=== PATIENT | male | born 1965 | race Caucasian/White ===

== ENCOUNTER 2020-04-02 16:26 | Outpatient (CLI) | payer OTHER, SELFPAY ==
--- NOTE | ~2020-04-02 | XR_ITS ---
EXAMINATION: XR shoulder LT min 2V DATE: 04/02/2020 16:50 INDICATION: Left shoulder pain radiating down the left arm TECHNIQUE: AP internally and externally rotated, AP oblique externally rotated and axillary views of the left shoulder were obtained. COMPARISON: None FINDINGS: Normal alignment. No fracture. Glenohumeral joint is normal. Acromioclavicular joint is normal. Soft tissues are unremarkable. Visualized portions of the left lung are clear. IMPRESSION: No osseous abnormality at the left shoulder. Reviewed, dictated and finalized at location A.
== END 2020-04-02 16:27 | disposition home or self-care (01) ==
PROVIDERS: PCP Family Medicine; Visit Provider Internal Medicine Endocrinology, Diabetes & Metabolism
DX: M25.519 Pain in unspecified shoulder (principal)
CPT/HCPCS: 73030

== ENCOUNTER 2020-05-25 15:04 | Emergency (ER) | payer OTHER, SELFPAY ==
[2020-05-25 15:09] VITALS: BP 161/93; PULSE 116; RESP 20; TEMP 36.9; O2SAT 95
--- NOTE | 2020-05-25 15:10 | ED.ALLEREA ---
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 He experienced swelling of his face and hands, tightness in hi chest getting, hives all over, and minor swelling of his throat, tongue and lips. He denies itching. He had his first (and only) episode of similar symptoms after being stung by yellow jackets a year ago also when he was weed whipping. He has a Epi auto-injector but did not use it because it was . He denies nausea, abd. pain, lightheadedness. Related Data Allergies Allergy/AdvReac Type Severity Reaction Status Date / Time Sulfa (Sulfonamide Allergy Intermediate Anaphylactic Verified 05/25/20 15:22 Antibiotics) Shock shellfish derived Allergy Mild Anaphylactic Verified 05/25/20 15:22 Shock bee venom protein (honey bee) Allergy Unknown unknown Verified 05/25/20 15:22 Penicillins Allergy Unknown MOTHER IS Verified 05/25/20 15:22 ALLERGIC sulfamethizole Allergy Unknown Asthma Verified 05/25/20 15:22 Review of Systems Constitutional: Constitutional: Reports no additional constitutional complaints ENT: Reports system reviewed and no additional complaints, except as documented and Denies sore throat Cardiovascular: Cardiovascular: Reports no additional cardiovascular complaints Respiratory: Respiratory: Reports no additional respiratory complaints Gastrointestinal: Gastrointestinal: Reports no additional gastrointestinal complaints Allergic/Immunologic: Allergic/Immunologic: Reports no additional allergic/immunologic complaints [facility] Surgical History Surgical History History of tonsillectomy History of vasectomy Hx of arthroscopy of right knee Family History Family History Mother Hypertension Father Acute myocardial infarction Other Diabetes mellitus Family history of hearing loss Family history of obesity Family history of thyroid disease Social History Social History Smoking status: Former smoker Smoking end date: 10/18/98 Alcohol intake: never Gender identity (if verbalized by the patient): Male Exam Const: General: alert; No diaphoretic Nutritional Appearance: obese Orientation/consciousness: patient oriented x3 Other: anxious HENMT: Face and sinus: normal facial exam (face is red, covered with developing hives. ) Mouth: Yes Normal oral and palatal mucosa present, Yes lip normal and Yes moist mucous membranes Eyes: Conjunctivae: conjunctivae normal Neck: Neck: no lymphadenopathy Chest: Chest palpation & inspection: normal inspection of the chest Resp: Effort & Inspection: normal respiratory effort Auscultation: clear to auscultation bilaterally Cardio: Rate: regular rate and tachycardic Rhythm: regular rhythm GI: GI Palp: Yes Soft to palpation and No Tenderness to palpation present (GI) Skin: Other: Hives located on face only. Neuro: General: patient oriented x3 Extrem: Other: palms are red, his hands and fingers are not obvioiusly swollen but he is obese. Course Course Emergency Course: Immediately given epinephrine 0.5 mg IM. Rash began clearing within minutes. Reevaluation(s) Reevaluation #1: Pt symptoms rapidly resolved. After 80 minutes he has no rash, itching, tightness in chest, swollen sensation in mouth or lips, nausea/abdominal pain. Pt. c/o nasal and sinus congestion with a very mild frontal headache. Blood pressure systolic 140 - 155 throughout course. Pt. instructed to f/u with PCP for referal to electrical project engineer. Date: 05/25/20 Time: 16:17 Vital Signs Vital signs: Vital Si
[2020-05-25] MEDS: EPINEPHrine HCL INJ 1 MG/ML AMPUL 0.5 MG IM (15:13)
[2020-05-25] MEDS: LORATADINE 10 MG TABLET PO (15:29)
[2020-05-25 16:00] VITALS: BP 136/88; PULSE 102; RESP 20; O2SAT 94
[2020-05-25 16:36] VITALS: BP 144/85; PULSE 104; RESP 20; O2SAT 98
== END 2020-05-25 16:37 | disposition home or self-care (01) ==
PROVIDERS: Emergency Provider Family Medicine; PCP Family Medicine
DX: T63.441A Toxic effect of venom of bees, accidental (unintentional), initial encounter (principal)
CPT/HCPCS: 96372; 99283; A9270; J0171

== ENCOUNTER 2021-03-05 17:13 | Inpatient (IN) | payer OTHER, SELFPAY ==
[2021-03-05] VITALS (8 sets, daily range): BP systolic 123–164; BP diastolic 76–97; PULSE 87–93; RESP 17–26; TEMP 36.8–37.9; O2SAT 96–99; BMI 40.9; BMI 40.8
--- NOTE | ~2021-03-05 | CT_ITS ---
EXAMINATION: CT abdomen pelvis wo con DATE: 03/05/2021 18:18 INDICATION: Abdominal pain TECHNIQUE: Computed tomography (CT) of the abdomen and pelvis was performed without intravenous contr ast. The dose-length product (DLP) was 1521.51 mGy-cm. Automated exposure control and iterative recon struction technique were employed. COMPARISON: 02/19/2019 FINDINGS: Minimal dependent atelectasis is present in the lung bases. The heart size is normal. The l iver, spleen,, gallbladder, and left adrenal gland are normal. A 10 mm low-attenuation mass of the ri ght adrenal gland is consistent with an adenoma a myelolipoma. The kidneys are unremarkable. No patho logically enlarged abdominal or pelvic lymph nodes are identified. There are no dilated loops of evaristo l. Colonic diverticulosis is noted. There is inflammatory fat stranding adjacent to the distal descen ding/proximal sigmoid colon. There are foci of adjacent extraluminal gas. Free intraperitoneal gas is also seen in right upper quadrant near the liver. There is a fat-containing umbilical hernia. Mild l umbar spondylosis is noted. IMPRESSION: 1. Perforated descending/sigmoid diverticulitis with free intraperitoneal gas adjacent to the inflamm ation as well as in the right upper quadrant. These findings were discussed with Dr. Bobby roberto DO in the Emergency Department at 1833 hours on 03/05/2021. Reviewed, dictated and finalized at location A. IMPRESSION: 1. Perforated descending/sigmoid diverticulitis with free intraperitoneal gas a djacent to the inflammation as well as in the right upper quadrant. These findi ngs were discussed with Dr. Bobby Page DO in the Emergency Department a t 1833 hours on 03/05/2021.
--- NOTE | 2021-03-05 17:25 | ED.ABDPAIN ---
HPI - Abdominal Pain General Chief Complaint: Abdominal Pain Stated Complaint: abdominal pain Time Seen by Provider: 03/05/21 17:14 Source: RN notes reviewed History of Present Illness HPI narrative: Patient presents to emergency department from home for abdominal pain. Patient states symptoms began last night. Pain is located in the bilateral lower abdomen described as sharp and stabbing does not radiate. He states subjective fever but denies any measured temperature. Denies any nausea vomiting diarrhea or any other symptoms. States he has a history of diverticulitis and this feels similar to prior Related Data Allergies Allergy/AdvReac Type Severity Reaction Status Date / Time Sulfa (Sulfonamide Allergy Intermediate Anaphylactic Verified 05/25/20 15:22 Antibiotics) Shock shellfish derived Allergy Mild Anaphylactic Verified 05/25/20 15:22 Shock bee venom protein (honey bee) Allergy Unknown unknown Verified 05/25/20 15:22 Penicillins Allergy Unknown MOTHER IS Verified 05/25/20 15:22 ALLERGIC sulfamethizole Allergy Unknown Asthma Verified 05/25/20 15:22 wasp Allergy Severe Anaphalaxis Uncoded 05/28/20 14:48 Review of Systems Review of Systems: Narrative: Gen.: Denies fevers or chills ENT: Denies congestion Respiratory: Denies shortness of breath or cough CV: Denies chest pain or palpitations GI: See HPI denies burning, urgency, frequency or hematuria Musculoskeletal: Denies back pain or muscle pain Neuro: Denies numbness, tingling, weakness or focal weakness Skin: Denies rash Except as documented, all other systems reviewed and negative PMF Past Medical History Medical History (Updated 03/05/21 @ 19:10 by Bobby Page DO) Hypertension Hypothyroidism Surgical History Surgical History History of tonsillectomy History of vasectomy Hx of arthroscopy of right knee Family History Family History Mother Hypertension Father Acute myocardial infarction Other Diabetes mellitus Family history of hearing loss Family history of obesity Family history of thyroid disease Social History Social History Smoking status: Former smoker Smoking end date: 10/18/98 Alcohol intake: never Gender identity (if verbalized by the patient): Male Exam Narrative: Exam Narrative: APPEARANCE: No acute distress, nontoxic, resting in bed HEENT: Normocephalic, atraumatic, OMM RESPIRATORY: No respiratory distress, clear to auscultation bilaterally with no rhonchi wheezing or rales CARDIOVASCULAR: RRR s murmur ABDOMINAL: Soft nondistended, tender palpation right lower quadrant and left lower quadrant no tenderness to palpation in right upper quadrant and left upper quadrant no rebound or guarding MUSCULOSKELETAl: Moves all extremities. No clubbing, cyanosis or edema. NEURO: Awake and alert. Following commands, speech normal, no focal deficits SKIN:: Warm, dry. Normal Color PSYCHIATRIC: Normal affect/mood Course Course Emergency Course: Called and discussed with Dr. Mills presentation work-up agrees with René this time with admission requests consult to hospitalist service for medical management Discussed with INOCENTE Beatty for Dr. Grijalva presentation work-up agrees with consult Discussed with patient and family results of workup and diagnosis. Discussed need for admission. Patient and family understand and agree to current treatment plan Vital Signs Vital signs: Vital Signs Pulse Rate 92 03/05/21 18:00 Respiratory Rate 26 H 03/05/21 18:00 Pulse Oximetry 98 03/05/21 18:00 Temperature 100.2 F H 03/05/21 18:01 Pulse Rate 92 03/05/21 18:01 Respiratory Rate 23 H 03/05/21 18:01 Blood Pressure 164/97 H 03/05/21 18:01 Pulse Oximetry 96 03/05/21 18:01 MDM - Abdominal Pain Lab Data Result d
[2021-03-05 18:21] LABS: Basophils Percent Auto 0.4 % (0.2-1.2); Eosinophils Absolute Auto 0.1 K/mm3 (0-0.3); Eosinophils Percent Auto 0.9 % (0-4.4); Hematocrit 41.7 % (42.0-52.0); Hemoglobin 13.8 g/dL (14.0-18.0); Immature Granulocyte Absolute 0.03 K/mm3 (0.00-0.031); Immature Granulocyte Percent A 0.3 % (0-0.5); Lymphocytes Percent Auto 21.4 % (18.3-44.2); Mean Corpuscular HGB Conc 33.1 g/dl (32-36); Mean Corpuscular Hemoglobin 26.6 pg (26-34); Mean Corpuscular Volume 80.5 fl (80-100); Monocytes Absolute Auto 0.6 K/mm3 (0.1-0.6); Monocytes Percent Auto 6.1 % (2.6-8.5); Neutrophils Absolute Auto 7.3 K/mm3 (1.3-6.7); Neutrophils Percent Auto 70.9 % (45.5-73.1); Platelet Count Result 210 k/mm3 (150-375); Red Blood Count 5.18 M/mm3 (4.6-6.20); Red Cell Distribution Width 14.4 % (11.5-14.5); White Blood Count 10.3 K/mm3 (4.5-10.0)
[2021-03-05] MEDS: KETOROLAC 30 MG/ML VIAL (*BKC) IV PUSH (18:21)
[2021-03-05] MEDS: SODIUM CHLORIDE 0.9% IV 1,000 ML 999 ML IV CONT (18:22)
[2021-03-05 18:39] LABS: Alanine Aminotransferase 15 U/L (4-50); Albumin Level 4.5 g/dL (3.5-5.1); Alkaline Phosphatase 77 U/L (38-126); Anion Gap 7 mmol/L (8-16); Aspartate Amino Transferase 22 U/L (17-59); Bilirubin,Total 0.7 mg/dL (0.2-1.3); Blood Urea Nitrogen 13 mg/dL (9-20); Calcium 9.4 mg/dL (8.4-10.2); Carbon Dioxide 29 mmol/L (22-30); Chloride 103 mmol/L (98-107); Estimated Glomerular Filt Rate > 60; Glucose 90 mg/dL (75-110); Lipase 76 U/L (23-300); Potassium 3.9 mmol/L (3.4-5.0); Sodium 139 mmol/L (137-145)
[2021-03-05 19:00] LABS: Add Urine Microscopic? NO; Appearance Urine Clear (Clear); Bilirubin Urine Negative (Negative); Blood Urine Negative (Negative); Color Urine Straw (Yellow); Glucose Urine UA Negative (Negative); Ketones Urine Negative (Negative); Leukocyte Esterase Ur Negative LEU/UL (Negative); Nitrate Urine Negative (Negative); Protein Urine Negative (Negative); Specific Grav Ur 1.006 (1.001-1.035); Urobilinogen Urine Negative mg/dL (<2.0)
[2021-03-05] MEDS: metroNIDAZOLE 500 MG/ISO 100ML 500 MG/100 ML BAG 100 MG IVPB ×2 (19:25→23:42)
[2021-03-05] MEDS: SODIUM CHLORIDE 0.9% IV 1,000 ML 125 ML IV CONT (22:17)
--- NOTE | 2021-03-05 23:00 | WPDCN ---
Assessment and Plan Assessment and plan (1) Diverticulitis of colon with perforation: Code(s): K57.20 - Diverticulitis of large intestine with perforation and abscess without bleeding Status: Acute (2) Hypertension: Code(s): I10 - Essential (primary) hypertension Status: Acute (3) Hypothyroidism: Code(s): E03.9 - Hypothyroidism, unspecified Status: Acute (4) Anemia: Code(s): D64.9 - Anemia, unspecified Status: Acute (5) Obstructive sleep apnea on CPAP: Code(s): G47.33 - Obstructive sleep apnea (adult) (pediatric); Z99.89 - Dependence on other enabling machines and devices Status: Acute Additional Plan The patient presents today with abdominal pain, found to have perforated diverticulitis. He has been admitted to the surgical service and has been started on levofloxacin and metronidazole. At this time he is on bowel rest and will receive IV fluid rehydration. Analgesics and antiemetics available as needed. I do not see any antihypertensives listed on his home medication but he does apparently care the diagnosis of hypertension. Blood pressures were initially elevated on arrival but have improved with pain control. They will continue to be monitored closely. He has a mild anemia which is stable on review of previous labs. He may use his CPAP from home while hospitalized. Continue levothyroxine but changed IV form as he is NPO. Check TSH and repeat labs in a.m. Thank you for allowing us to participate in this patient's care. Please do not hesitate to contact us with any questions. Supervising physician for this medical consultation is Dr. Joana Grijalva. HPI Data of Consult Date/Time: 03/05/21 23:00 Requesting Physician: Joana Grijalva MD Primary Care Provider: Denver Hogan MD Consult Narrative Narrative: This is a 55-year-old male with history of recurrent diverticulitis, obstructive sleep apnea on CPAP, and hypothyroidism who presented to the emergency department earlier today via private vehicle from home with complaints of abdominal pain. Yesterday afternoon he developed the gradual onset of lower abdominal discomfort similar to previous episodes of diverticulitis. He has not had anything to eat or drink since that time in hopes that it would improve his pain but unfortunately as the night progressed his pain continued to get worse. He describes a sharp and stabbing pain throughout the lower abdomen, worse with movement. Aside from IV pain medication he has not noticed any thing that makes the pain better. Sometime last evening he felt like he had a fever and on arrival to the emergency department his temperature was 100.2? Fahrenheit. A CT of the abdomen and pelvis showed perforated descending/sigmoid diverticulitis with free intraperitoneal gas adjacent to the inflammation as well as in the right upper quadrant. He has been admitted to the surgical service and hospitalist team is seeing him in consultation. At the time my evaluation he feels quite a bit better after receiving IV morphine, rating his pain only 2/10. He denies associated nausea and vomiting. No diarrhea; he had a normal bowel movement yesterday morning. Review of Systems Review of Systems: Narrative: Twelve systems were reviewed with pertinent positives and negatives as per HPI. He denies cold and flu symptoms. No exposure to those positive for COVID-19. Denies chest pain and shortness of breath. No orthopnea, PND, or lower extremity edema. He is compliant with his CPAP at nighttime. Except as documented, all other systems were reviewed and are negative. [facility] Past Medical History Medical History (Updated 03/05/21 @ 23:43 by Jaci Lebron PA-C) Anemia Diverticulitis Hypertension Hypogonadotropic hypogonadism Hypothyroidism Obstructive sleep apnea on CPAP Vitamin D deficiency Surgical Histor
[2021-03-06] MEDS: metroNIDAZOLE 500 MG/ISO 100ML 500 MG/100 ML BAG 100 MG IVPB ×3 (05:11→17:35)
[2021-03-06] MEDS: LEVOTHYROXINE SODIUM INJ 100 MCG/5 ML VIAL 87.5 MCG IV PUSH (05:22)
[2021-03-06] MEDS: MORPHINE SULFATE (*CRX) 4 MG/ML INJ IV PUSH (05:22)
[2021-03-06 05:32] VITALS: BP 126/67; PULSE 84; RESP 20; TEMP 36.5; O2SAT 99
[2021-03-06 06:29] LABS: Basophils Percent Auto 0.4 % (0.2-1.2); Eosinophils Absolute Auto 0.1 K/mm3 (0-0.3); Hematocrit 39.4 % (42.0-52.0); Hemoglobin 12.8 g/dL (14.0-18.0); Immature Granulocyte Absolute 0.02 K/mm3 (0.00-0.031); Immature Granulocyte Percent A 0.3 % (0-0.5); Lymphocytes Absolute Auto 1.45 K/mm3 (0.9-3.2); Lymphocytes Percent Auto 20.5 % (18.3-44.2); Mean Corpuscular HGB Conc 32.5 g/dl (32-36); Mean Corpuscular Hemoglobin 26.5 pg (26-34); Mean Corpuscular Volume 81.6 fl (80-100); Mean Platelet Volume 9.8 fl (7.4-10.4); Monocytes Absolute Auto 0.6 K/mm3 (0.1-0.6); Monocytes Percent Auto 8.2 % (2.6-8.5); Neutrophils Absolute Auto 4.9 K/mm3 (1.3-6.7); Neutrophils Percent Auto 69.6 % (45.5-73.1); Platelet Count Result 167 k/mm3 (150-375); Red Blood Count 4.83 M/mm3 (4.6-6.20); Red Cell Distribution Width 14.4 % (11.5-14.5); White Blood Count 7.1 K/mm3 (4.5-10.0)
[2021-03-06 06:37] LABS: Anion Gap 4 mmol/L (8-16); Blood Urea Nitrogen 10 mg/dL (9-20); Calcium 8.5 mg/dL (8.4-10.2); Carbon Dioxide 27 mmol/L (22-30); Chloride 107 mmol/L (98-107); Estimated CRCL calculation 118 ml/min; Estimated Glomerular Filt Rate > 60; Glucose 110 mg/dL (75-110); Potassium 3.8 mmol/L (3.4-5.0); Sodium 138 mmol/L (137-145)
[2021-03-06 06:41] LABS: Alanine Aminotransferase 13 U/L (4-50); Albumin Level 3.7 g/dL (3.5-5.1); Alkaline Phosphatase 70 U/L (38-126); Aspartate Amino Transferase 17 U/L (17-59); Bilirubin,Total 0.7 mg/dL (0.2-1.3); Magnesium 1.9 mg/dL (1.6-2.3)
--- NOTE | 2021-03-06 08:30 | PC.NURSE ---
This patient, Christo Cook, was admitted to [facility] Surg Room 329-01. Patient/family oriented to hospital policies and general routines including ID bracelet, bed and alarms, visiting hours, pain management, procedures, bathroom and other care routines, personal items, smoking policy, room service/diet, and visiting hours. Patient arrived to floor at 203403/05/21 Information on how to activate the Rapid Response Team has been discussed. Patient/Family are encouraged to report perceived risks to care and to ask questions if they do not understand what they are told or what they should do.
--- NOTE | 2021-03-06 09:22 | PM.IMHP ---
H&P: HPI History of Present Illness Date/Time: 03/06/21 09:22 Chief Complaint: Sigmoid diverticulitis with perforation, without abscess Narrative: This is a 55-year-old white male with history of recurrent diverticulitis ( his last episode was in February of 2019), obstructive sleep apnea on CPAP, and hypothyroidism who presented to the emergency department yesterday via private vehicle from home with complaints of abdominal pain. Yesterday afternoon he developed the gradual onset of lower abdominal discomfort similar to previous the episode of diverticulitis. he states that he may have begun to notice something late last week with a little pressure whenever he needed to avoid but he did not think that much about it. Did not really have significant symptoms until yesterday morning. He has not had anything to eat or drink since that time in hopes that it would improve his pain but unfortunately as the day progressed his pain continued to get worse. He describes a sharp and stabbing pain throughout the lower abdomen, worse with movement. More to the left and the right. Aside from IV pain medication he has not noticed any thing that makes the pain better. Sometime Tues. evening he felt like he had a fever and on arrival to the emergency department his temperature was 100.2? Fahrenheit. A CT of the abdomen and pelvis showed perforated descending/sigmoid diverticulitis with small bubbles of free intraperitoneal gas adjacent to the inflammation as well as in the right upper quadrant. At the time my evaluation this AM he feels quite a bit better after receiving IV morphine, rating his pain only 2/10. he states that he did not need to take any pain medication overnight until 5:00 a.m. this morning. Then he took some morphine again. He denies associated nausea and vomiting. No diarrhea; he had a normal bowel movement yesterday morning. Review of Systems Constitutional: Constitutional: Reports as per HPI and Denies headache(s) Eyes: Eyes: Denies loss of vision and Denies eye pain ENT: Reports Normal hearing present, Denies change in voice, Denies dizziness and Denies headache(s) Cardiovascular: Cardiovascular: Denies chest pain and Denies dyspnea Respiratory: Respiratory: Denies dyspnea and Denies wheezing Comments: Known history of sleep apnea. Gastrointestinal: Gastrointestinal: Reports abdominal pain (Mainly LLq today) Musculoskeletal: Musculoskeletal: Denies back pain and Denies arthralgias Neurologic: Reports Normal hearing present, Denies dizziness, Denies headache(s), Denies loss of vision and Denies memory loss Psychiatric: Psychiatric: Denies memory loss and Denies panic attacks Endocrine: Endocrine: Reports no additional endocrine complaints Hematologic/Lymphatic: Hematologic/Lymphatic: Reports no additional hematologic/lymphatic complaints Allergic/Immunologic: Allergic/Immunologic: Denies wheezing PMF Past Medical History Medical History Anemia Diverticulitis Hypertension Hypogonadotropic hypogonadism Hypothyroidism Obstructive sleep apnea on CPAP Vitamin D deficiency Surgical History Surgical History History of arthroscopy of right knee History of tonsillectomy History of vasectomy Family History Family History Mother Hypertension Bladder cancer Father Diabetes mellitus Acute myocardial infarction Family history of obesity Family history of hearing loss Family history of thyroid disease Social History Social History Social History: The patient lives with his and 2 sons in [place]. 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 Smoked 1 pack of cigarettes a day for 5 years and quit in 1994. No alcohol or illicit substance abuse. He designates his Stefanie as his surrogate de
[2021-03-06 10:23] VITALS: O2SAT 93
[2021-03-06] MEDS: SODIUM CHLORIDE 0.9% IV 1,000 ML 90 ML IV CONT (12:08)
[2021-03-06] MEDS: ACETAMINOPHEN 500 MG TABLET 1000 MG PO ×2 (12:22→20:42)
[2021-03-06 14:00] VITALS: BP 152/90; PULSE 91; RESP 16; TEMP 36.6; O2SAT 97
--- NOTE | 2021-03-06 15:27 | PM.IMPN ---
Progress Note: A&P Assessment and Plan (1) Diverticulitis of colon with perforation: Qualifiers: Diverticulitis bleeding: without bleeding Qualified Code(s): K57.20 - Diverticulitis of large intestine with perforation and abscess without bleeding Code(s): K57.20 - Diverticulitis of large intestine with perforation and abscess without bleeding Status: Acute Assessment and Plan: Patient presents with lower abdominal pain, now improved. CT abdomen demonstrated perforated descending/sigmoid diverticulitis. He remains on IV Levaquin and Flagyl today and has been tolerating a clear liquid diet. Continue supportive care through conservative management outlined by the primary service, general surgery. (2) Hypothyroidism: Qualifiers: Hypothyroidism type: unspecified Qualified Code(s): E03.9 - Hypothyroidism, unspecified Code(s): E03.9 - Hypothyroidism, unspecified Status: Chronic Assessment and Plan: Continue his home levothyroxine IV. TSH within normal limits. Follows with Endocrinology, Dr. Person. (3) Anemia: Qualifiers: Anemia type: unspecified type Qualified Code(s): D64.9 - Anemia, unspecified Code(s): D64.9 - Anemia, unspecified Status: Chronic Assessment and Plan: Chronic based on review of previous labs, stable. No evidence of acute bleeding. Monitor CBC. (4) Obstructive sleep apnea on CPAP: Code(s): G47.33 - Obstructive sleep apnea (adult) (pediatric); Z99.89 - Dependence on other enabling machines and devices Status: Chronic Assessment and Plan: CPAP, brought his own from home. Additional Plan Thank you for allowing me to participate in this pleasant gentleman's care. Do not hesitate to call for any questions or concern. We will follow with you while he is here. Subjective Date/time seen: 03/06/21 1415 Interval history: Mr. Cook is a pleasant 55yo M admitted for sigmoid diverticulitis with perforation seen in follow-up for medical management of comorbidities. He describes he is feeling well today, much better than when he came in. His abdominal pain is located in his left lower quadrant and is overall improved. He denies any nausea or vomiting. No chest pain or shortness of breath. Review of Systems Review of Systems: All systems reviewed & are unremarkable except as noted in HPI and below Exam Narrative: Exam Narrative: General: Male resting comfortably sitting on edge of bed in no acute distress. HEENT: Normocephalic, EOMI, oral mucosa moist. Neck: Supple. Respiratory: Lungs are clear to auscultation bilaterally. Respirations even and nonlabored. Tolerating room air. Cardiovascular: Rate and rhythm regular. Gastrointestinal: Abdomen is soft and nondistended with positive bowel sounds. Tenderness to left lower quadrant without guarding. Skin: Warm and dry. No rash or lesions on limited exam. Extremities: Peripheral pulses intact. No edema or pain to palpation. Neurological: Awake and alert, answering questions appropriately. No focal neurological deficits are noted. Speech is clear. Psychiatric: Pleasant and cooperative with normal mood and affect. Judgment and insight intact. Objective Data Vital Signs Vital Signs: Last Vital Signs Temp 97.8 F 03/06/21 14:00 Pulse 91 03/06/21 14:00 Resp 16 03/06/21 14:00 BP 152/90 H 03/06/21 14:00 Pulse Ox 97 03/06/21 14:00 Intake/Output Intake/Output: Intake & Output 03/03/21 03/04/21 03/05/21 03/06/21 23:59 23:59 23:59 23:59 Intake Total 1100 1660 Balance 1100 1660 Meds/Results Medications: Active Medications Generic Name Dose Route Start Last Admin Trade Name Freq PRN Reason Stop
[2021-03-06 21:45] VITALS: BP 123/68; PULSE 88; RESP 18; TEMP 37; O2SAT 95
[2021-03-06 22:29] VITALS: PULSE 86; O2SAT 96
[2021-03-06 22:30] VITALS: O2SAT 96
[2021-03-07] MEDS: metroNIDAZOLE 500 MG/ISO 100ML 500 MG/100 ML BAG 100 MG IVPB ×3 (00:09→12:11)
[2021-03-07] MEDS: SODIUM CHLORIDE 0.9% IV 1,000 ML 90 ML IV CONT (04:01)
[2021-03-07] MEDS: LEVOTHYROXINE SODIUM INJ 100 MCG/5 ML VIAL 87.5 MCG IV PUSH (05:36)
[2021-03-07 05:38] VITALS: BP 108/55; PULSE 80; RESP 18; TEMP 37.4; O2SAT 96
[2021-03-07 06:46] LABS: Basophils Percent Auto 0.5 % (0.2-1.2); Eosinophils Absolute Auto 0.1 K/mm3 (0-0.3); Eosinophils Percent Auto 1.7 % (0-4.4); Hematocrit 39.3 % (42.0-52.0); Hemoglobin 12.6 g/dL (14.0-18.0); Immature Granulocyte Absolute 0.02 K/mm3 (0.00-0.031); Immature Granulocyte Percent A 0.3 % (0-0.5); Lymphocytes Percent Auto 20.1 % (18.3-44.2); Mean Corpuscular HGB Conc 32.1 g/dl (32-36); Mean Corpuscular Hemoglobin 26.3 pg (26-34); Mean Corpuscular Volume 81.9 fl (80-100); Mean Platelet Volume 9.9 fl (7.4-10.4); Monocytes Absolute Auto 0.5 K/mm3 (0.1-0.6); Monocytes Percent Auto 7.5 % (2.6-8.5); Neutrophils Absolute Auto 4.2 K/mm3 (1.3-6.7); Neutrophils Percent Auto 69.9 % (45.5-73.1); Platelet Count Result 181 k/mm3 (150-375); Red Cell Distribution Width 14.5 % (11.5-14.5)
[2021-03-07 06:59] LABS: Lactic Acid Reflex 0.8 mmol/L (0.7-2.1); Magnesium 1.9 mg/dL (1.6-2.3)
[2021-03-07] MEDS: polyethylene glycoL 3350 17 GM POWD.PACK PO (08:40)
--- NOTE | 2021-03-07 10:25 | PCDIET ---
Dietitians consult for low fiber/high fiber diet instructions. See nutritional interventions.
--- NOTE | 2021-03-07 12:57 | PM.IMPN ---
Progress Note: A&P Assessment and Plan (1) Diverticulitis of colon with perforation: Onset Date: ~03/04/21 Qualifiers: Diverticulitis bleeding: without bleeding Qualified Code(s): K57.20 - Diverticulitis of large intestine with perforation and abscess without bleeding Code(s): K57.20 - Diverticulitis of large intestine with perforation and abscess without bleeding Status: Acute Assessment and Plan: Patient presents with lower abdominal pain, now improved. CT abdomen demonstrated perforated descending/sigmoid diverticulitis. He was treated with IV Levaquin and Flagyl today and has been tolerating a full liquid diet. He will have a low-fiber diet for lunch and can discharge after, discussed case with Dr. Mills. Continue supportive care through conservative management outlined by the primary service, general surgery. See Dr. Mills's discharge summary. (2) Hypothyroidism: Onset Date: Unknown Qualifiers: Hypothyroidism type: unspecified Qualified Code(s): E03.9 - Hypothyroidism, unspecified Code(s): E03.9 - Hypothyroidism, unspecified Status: Chronic Assessment and Plan: He was treated with his home levothyroxine by IV. TSH within normal limits. Follows with Endocrinology, Dr. Person. He will continue his home dose of oral levothyroxine at discharge. (3) Anemia: Onset Date: Unknown Qualifiers: Anemia type: unspecified type Qualified Code(s): D64.9 - Anemia, unspecified Code(s): D64.9 - Anemia, unspecified Status: Chronic Assessment and Plan: Chronic based on review of previous labs, stable. No evidence of acute bleeding. Monitor CBC. (4) Obstructive sleep apnea on CPAP: Onset Date: Unknown Code(s): G47.33 - Obstructive sleep apnea (adult) (pediatric); Z99.89 - Dependence on other enabling machines and devices Status: Chronic Assessment and Plan: CPAP, brought his own from home. Additional Plan He has some intermittently elevated blood pressures which I feel may be situational. His blood pressure was 108/55 earlier this morning. I do not feel that he needs to be started on any antihypertensives at this time. Follow-up with PCP. We discussed getting a blood pressure cuff for home so he can intermittently monitor and follow-up with PCP. He has an itchy patch of dry skin to left foot with some cracking that he says has been there for years despite [id number] topical treatments. He says after he gets out of the shower, the skin is very soft and well rub bright off and become itchy. Encouraged him to discuss this with his primary care provider as it may need JAZIEL scrape testing or biopsy for definitive diagnosis and appropriate treatment. Thank you for allowing me to participate in this pleasant gentleman's care. He is medically stable for discharge from hospitalist standpoint. Call for any questions. Subjective Date/time seen: 03/07/21 12:45 Interval history: Mr. Cook is a pleasant 55yo M admitted for sigmoid diverticulitis with perforation seen in follow-up for medical management of comorbidities. He is much improved, rates his left lower quadrant abdominal pain at 1/10. He has tolerated meals without nausea or vomiting. He has had multiple bowel movements this morning. No chest pain or shortness of breath. He is in good spirits, ready to go home. Review of Systems Review of Systems: All systems reviewed & are unremarkable except as noted in HPI and below Exam Narrative: Exam Narrative: General: Male resting comfortably sitting up in bed in no acute distress. HEENT: Normocephalic, EOMI, oral mucosa moist. Neck
--- NOTE | 2021-03-07 13:00 | PM.DS ---
DS: Admitting Diagnosis Admitting Diagnosis Admitting Diagnosis: Acute sigmoid diverticulitis with perforation DS: Discharge Diagnosis Discharge Diagnosis (1) Diverticulitis of colon with perforation: Onset Date: ~03/04/21 Qualifiers: Diverticulitis bleeding: without bleeding Qualified Code(s): K57.20 - Diverticulitis of large intestine with perforation and abscess without bleeding Code(s): K57.20 - Diverticulitis of large intestine with perforation and abscess without bleeding Status: Acute Assessment and Plan: this is the main reason for the hub patient's hospitalization. He had increasing left lower quadrant abdominal pain. He had a low-grade fever. He came to the hospital and CT scan of the abdomen pelvis revealed inflammation at the junction of this distal descending and proximal sigmoid colon. This was suspected to be from diverticulitis. He had a few bubbles of free air near this and also some in the right upper quadrant but did not have apparent pair peritonitis. Therefore he was treated conservatively with bowel rest and antibiotics. He is improving nicely and gradually increasing his diet. He is ready to go home this date. (2) Obstructive sleep apnea on CPAP: Onset Date: Unknown Code(s): G47.33 - Obstructive sleep apnea (adult) (pediatric); Z99.89 - Dependence on other enabling machines and devices Status: Chronic Assessment and Plan: Patient uses his CPAP and use this at the hospital when trying to sleep. (3) Anemia: Onset Date: Unknown Qualifiers: Anemia type: unspecified type Qualified Code(s): D64.9 - Anemia, unspecified Code(s): D64.9 - Anemia, unspecified Status: Chronic Assessment and Plan: Patient still mildly anemic with hemoglobin of 12. No further testing done by hospitalist this time since his PCP is aware and he has had outpatient testing. On not have the patient go on on [id number] iron right now because this can often cause constipation we do not want that with the recent episode of diverticulitis. (4) Hypothyroidism: Onset Date: Unknown Qualifiers: Hypothyroidism type: unspecified Qualified Code(s): E03.9 - Hypothyroidism, unspecified Code(s): E03.9 - Hypothyroidism, unspecified Status: Chronic Assessment and Plan: Hospitalist service saw the patient. A TSH was checked and this was within normal range. His thyroid replacement was continued through the hospitalization and he will return to his usual oral dose upon discharge. (5) Hypertension: Onset Date: Unknown Code(s): I10 - Essential (primary) hypertension Status: Acute Assessment and Plan: Patient has occasionally a carried this diagnosis but is not on any home medications for a period seem like he had a few high blood pressure readings while he was having pain in the hospital but this is return to a normal range on the day of discharge so no home medications are planned at this time. He should follow up with his PCP regarding this. (6) BMI 40.0-44.9, adult: Onset Date: Unknown Code(s): Z68.41 - Body mass index [BMI]40.0-44.9, adult Status: Acute Assessment and Plan: Encouraged patient to continue his planned diet. He is working on fasting diet with his trommel tender. He will also make sure that he gets plenty of fiber by taking Metamucil once or twice a day beginning the middle of next week. After thorough history I wondered if may be his change in diet with decreased fiber precipitated his episode of diverticulitis this time. Therefore he will try to make sure that he keeps a good amount of fresh fruits and vegetables along with some Metamucil and his diet even though he is limiting the times that which he eats. (7) Vitamin D deficiency: Onset Date: Unknown Code(s): E55.9 - Vitamin D deficiency, unspecified Status: Acute
[2021-03-07 14:00] VITALS: BP 149/82; PULSE 102; RESP 18; TEMP 36.7; O2SAT 97
== END 2021-03-07 16:15 | disposition home or self-care (01) | DRG 392 ==
LOC: ANHED 19:10 → ANH3MEDSUR 19:40
PROVIDERS: Physician Assistant; Admitting Provider Surgery; Emergency Provider Emergency Medicine; PCP Family Medicine; Visit Provider Surgery
DX: K57.20 Diverticulitis of large intestine with perforation and abscess without bleeding (principal); E23.0 Hypopituitarism; E03.9 Hypothyroidism, unspecified; I10 Essential (primary) hypertension; D64.9 Anemia, unspecified; G47.33 Obstructive sleep apnea (adult) (pediatric); E55.9 Vitamin D deficiency, unspecified; Z79.899 Other long term (current) drug therapy; Z86.010 Personal history of colon polyps; Z87.891 Personal history of nicotine dependence; Z99.89 Dependence on other enabling machines and devices
CPT/HCPCS: 36415; 74176; 80048; 80053; 80076; 81003; 83605; 83690; 83735; 84443; 85025; 87040; 96361; 96366; 96375; 99285; A9270; G0378; J1885; J1956; J2270; J7030

== ENCOUNTER 2021-06-22 15:23 | Emergency (ER) | payer OTHER, SELFPAY ==
[2021-06-22 15:23] VITALS: BP 113/82; PULSE 115; RESP 20; TEMP 36.7; O2SAT 96
[2021-06-22] MEDS: EPINEPHrine HCL INJ 1 MG/ML AMPUL 0.3 MG SUB-Q (15:30)
--- NOTE | 2021-06-22 15:42 | ED.ALLEREA ---
HPI - Allergic Reaction General Chief complaint: Allergic Reaction Stated complaint: allergic bee sting Time Seen by Provider: 06/22/21 15:43 Source: patient Mode of arrival: ambulatory Limitations: no limitations History of Present Illness HPI narrative: 55-year-old man history of allergy to bee stings comes in today complaining of shortness of breath, throat tightening, rash, sweating and shortness of breath that started almost immediately after being stung by a bee on his left knee. He has had at least 2 prior similar episodes in the past. He states he could not find his epinephrine pens. He denies chest pain, vomiting, diarrhea, and recent cough or cold symptoms. MD complaint: allergic reaction Onset (ago): minute(s) (15) Exposure: insect bite Known history of allergy to: Bee sting Symptoms: itching, facial swelling, lip swelling and difficulty breathing Severity: moderate Treatment prior to arrival: none Previous Allergic Reaction History: prior ED visit(s) and anaphylaxis Related Data Allergies Allergy/AdvReac Type Severity Reaction Status Date / Time Sulfa (Sulfonamide Allergy Intermediate Anaphylactic Verified 05/25/20 15:22 Antibiotics) Shock shellfish derived Allergy Mild Anaphylactic Verified 05/25/20 15:22 Shock bee venom protein (honey bee) Allergy Unknown unknown Verified 05/25/20 15:22 Penicillins Allergy Unknown MOTHER IS Verified 05/25/20 15:22 ALLERGIC sulfamethizole Allergy Unknown Asthma Verified 05/25/20 15:22 wasp Allergy Severe Anaphalaxis Uncoded 05/28/20 14:48 Review of Systems Review of Systems: All systems reviewed & are unremarkable except as noted in HPI and below Constitutional: Constitutional: Denies chills, Denies fever(s) and Denies weakness ENT: Denies nasal congestion and Denies sore throat Cardiovascular: Cardiovascular: Denies chest pain and Denies radiating jaw, neck or arm pain Respiratory: Respiratory: Denies chest congestion, Denies cough, Reports dyspnea and Denies wheezing Gastrointestinal: Gastrointestinal: Denies abdominal pain, Denies diarrhea, Denies nausea and Denies vomiting Musculoskeletal: Musculoskeletal: Denies arthralgias and Denies joint swelling Integumentary/Breasts: Skin/Breast: Reports pruritus, Reports erythema and Denies rash Neurologic: Denies vertigo, Denies dizziness, Denies syncope and Denies focal weakness Allergic/Immunologic: Allergic/Immunologic: Denies lip swelling, Reports throat swelling and Denies tongue swelling PMFSH Past Medical History Medical History Anemia (Unknown) Diverticulitis Hypertension (Unknown) Hypogonadotropic hypogonadism Hypothyroidism (Unknown) Obstructive sleep apnea on CPAP (Unknown) Vitamin D deficiency Surgical History Surgical History History of arthroscopy of right knee History of tonsillectomy History of vasectomy Family History Family History Mother Hypertension Bladder cancer Father Diabetes mellitus Acute myocardial infarction Family history of obesity Family history of hearing loss Family history of thyroid disease Social History Social History Social History: The patient lives with his and 2 sons in [place]. 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 Smoked 1 pack of cigarettes a day for 5 years and quit in 1994. No alcohol or illicit substance abuse. He designates his Stefanie as his surrogate decision maker. Code status: Full code. Alcohol intake: never Substance use: never Gender identity (if verbalized by the patient): Male Spiritual care concerns: No Exam Const: General: alert Limitations: no limitations Other: moderate acute distress, diaphoretic, anxious appearing HENMT: Head: normal to inspection Face and s
[2021-06-22] MEDS: diphenhydrAMINE HCl INJ 50 MG/ML VIAL 25 MG IV PUSH (15:55)
[2021-06-22] MEDS: methylPREDNISolone SOD SUCC 125 MG VIAL IV PUSH (15:55)
[2021-06-22 16:57] VITALS: BP 117/72; PULSE 95; RESP 14; O2SAT 97
== END 2021-06-22 17:13 | disposition home or self-care (01) ==
PROVIDERS: Emergency Provider Emergency Medicine; PCP Family Medicine
DX: T78.2XXA Anaphylactic shock, unspecified, initial encounter (principal)
CPT/HCPCS: 96372; 96374; 96375; 99283; 99284; J0171; J1200; J2930

== ENCOUNTER 2023-03-22 10:12 | Outpatient (CLI) | payer OTHER, SELFPAY ==
[2023-03-25 19:48] LABS: Testosterone Free 32.9 pg/mL (35.0-155.0); Testosterone Total 155 ng/dL (250-1100)
== END 2023-03-22 10:13 | disposition home or self-care (01) ==
LOC: ANHGOSHLAB 10:13
PROVIDERS: PCP Family Medicine; Visit Provider Internal Medicine Endocrinology, Diabetes & Metabolism
DX: E23.0 Hypopituitarism (principal)
CPT/HCPCS: 36415; 84402; 84403

== ENCOUNTER → 2023-11-29 08:39 | Outpatient (CLI) | payer OTHER, SELFPAY ==
--- NOTE | ~2023-11-29 | XR_ITS ---
XR foot LT min 3V DATE: 11/29/2023 09:01 INDICATION: Twisting injury a few months ago. Lateral pain. TECHNIQUE: 4 views no recent fracture or dislocation, periosteal reaction or bone destruction is dete cted. COMPARISON: No recent fracture or dislocation is detected FINDINGS: IMPRESSION: Reviewed, dictated and finalized at location [facility] IMPRESSION:
== END ==
PROVIDERS: PCP Family Medicine; Visit Provider Nurse Practitioner Family
DX: M79.672 Pain in left foot (principal)
CPT/HCPCS: 73630

== ENCOUNTER 2025-04-26 22:02 | Emergency (ER) | payer OTHER, SELFPAY ==
[2025-04-26 22:10] VITALS: BP 155/95; PULSE 91; RESP 12; O2SAT 97
[2025-04-26 22:14] VITALS: O2SAT 100
[2025-04-26] MEDS: FAMOTIDINE 20 MG/2 ML VIAL IV PUSH (22:18)
[2025-04-26 22:20] VITALS: BP 155/95; PULSE 92; RESP 12; TEMP 36.6; O2SAT 100
--- NOTE | 2025-04-26 22:56 | ED_ITS ---
HPI - Allergic Reaction General Chief complaint: Allergic Reaction Stated complaint: WASP STING REACTION Time Seen by Provider: 04/26/25 22:07 History of Present Illness HPI narrative: Patient is a 59-year-old male who presents the emergency department this evening with an allergic reaction. States that he was stung by a wasp approximately 30 minutes prior to arrival. Patient does have a known allergy to wasps/bee stings. He did use his EpiPen. States that he feels some tingling sensation in his throat and abdominal cramps otherwise denies any additional symptoms. Currently satting 97% on room air. No evidence of facial swelling or lip swelling. Patient states that he does have an EpiPen at home but he did not use it today, did not feel the need to. Related Data Allergies Allergy/AdvReac Type Severity Reaction Status Date / Time Sulfa (Sulfonamide Allergy Intermediate Anaphylactic Verified 04/26/25 22:03 Antibiotics) Shock shellfish derived Allergy Mild Anaphylactic Verified 04/26/25 22:03 Shock bee venom protein (honey bee) Allergy Unknown unknown Verified 04/26/25 22:03 Penicillins Allergy Unknown MOTHER IS Verified 04/26/25 22:03 ALLERGIC sulfamethizole Allergy Unknown Asthma Verified 04/26/25 22:03 wasp Allergy Severe Anaphalaxis Uncoded 04/26/25 22:03 Review of Systems Review of Systems: All systems are reviewed and are negative unless stated otherwise in the HPI. [facility] Past Medical History Medical History Peroneal tendonitis of left lower extremity Anemia (Unknown) Obstructive sleep apnea on CPAP (Unknown) Vitamin D deficiency Diverticulitis Hypertension (Unknown) Hypogonadotropic hypogonadism Hypothyroidism (Unknown) Surgical History Surgical History History of arthroscopy of right knee History of vasectomy History of tonsillectomy Family History Family History Mother Hypertension Bladder cancer Father Diabetes mellitus Acute myocardial infarction Family history of obesity Family history of hearing loss Family history of thyroid disease Social History Social History Social History: The patient lives with his and 2 sons in [place]. 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 Smoked 1 pack of cigarettes a day for 5 years and quit in 1994. No alcohol or illicit substance abuse. He designates his Stefanie as his surrogate decision maker. Code status: Full code. Smoking status: Former smoker (quit 20 years ago) Alcohol intake: never Substance use: never Lack of Transportation: No Lack of Food: Sometimes True Current Housing: I Have Housing Concerned About Future Housing: No Difficulty Paying Gas/Electric Bills: No Difficulty Paying for Meds: No Currently Unemployed: No Education: Bachelor's Degree Difficulty w/ Childcare or Family Care: No Gender identity (if verbalized by the patient): Male Spiritual care concerns: No Exam Narrative: General: Alert, awake, afebrile, in no acute distress. HEENT: PERRL, no rhinorrhea, no post nasal drip, oropharynx clear, no evidence of any facial or lip swelling. Neck: Trachea midline, no JVD, no lymphadenopathy. Cardiovascular: Regular rate and rhythm, no murmurs, rubs or gallops, no peripheral edema. Respiratory: Clear to auscultation bilaterally, no tachypnea, no wheezing, no rhonchi, no rubs, no respiratory distress. Abdomen: Soft, nontender, nondistended, no rebound, no guarding, no peritoneal signs. Musculoskeletal: No joint swelling or deformity, normal muscle tone. Skin: No rashes or petechia, no signs of infection. Psychiatric: Alert and oriented, normal behavior and judgment for situation. Neurological: Alert and oriented to person, place, and time. Follows all commands. No focal deficits, speech is clear and fluent. Course Vital Signs Vital signs: Vital Signs Pulse Rate 91 04/26/25 22:10 Respiratory Rate 12 04/26/25 22:10 Blood Pressure 155/95 H 04/26/25 22:10 Pulse Oximetry 97 04/26/25 22:10 Oxygen Delivery Room Air 04/26/25 22:10 Temperature 97.8 F 04/26/25 22:20 Pulse Rate 92 04/26/25 22:20 Respiratory Rate 12 04/26/25 22:20 Blood Pressure 155/95 H 04/26/25 22:20 Pulse Oximetry 100 04/26/25 22:20 Oxygen Delivery Room Air 04/26/25 22:14 MDM - Allergic Reaction MDM Narrative Medical decision making narrative: The patient was evaluated by myself in the emergency department. History is obtained from patient who is an independent historian and physical exam was performed. External medical records were reviewed at this time. IV was established and pertinent tests were ordered. Patient was administered 50 mg of IV Benadryl, 20 mg of IV Pepcid, 125 mg of IV Solu-Medrol. Differential diagnosis considerations include allergic reaction, anaphylaxis. Comorbidities impacting this visit include history of allergy to bee stings. I have evaluated and discussed social determinants of health with the patient that could potentially impact subsequent diagnosis and treatment plans. Patient was observed in our emergency department for approximately 90 minutes. I did recommend observing him for an additional hour, however, he refused stating that he feels great and would like to go home. On repeat assessment of the patient, reevaluation revealed that the patient is doing well and is in no acute distress. Patient symptoms have improved since he arrived to our emergency department. Repeat vital signs were all reviewed and noted to be stable. Differential diagnosis and treatment plan were discussed with the patient at bedside. Patient agrees with discussion and after shared medical decision making agrees with discharge. All questions were answered to the patient's satisfaction. Patient will follow up with his PCP in 3-5 days. Patient was provided with strict return precautions and instructed to return to the emergency department if any new or worsening symptoms develop. The patient was discharged in stable condition. Discharge Plan Discharge Clinical Impression: Allergic reaction Patient Disposition: Home Condition: Improved Instructions: Antibiotic Form, Insect Bite or Sting (ED), Allergies (ED) Additional Instructions: Please follow-up with your family doctor within the next 3-5 days. Return e mergency department if any new or worsening symptoms develop. Patient Language: Kiswahili Prescriptions: No Action tirzepatide (weight loss) 15 mg/0.5 mL pen injector 15 mg subcut WEEKLY 84 Days Qty: 6 2RF testosterone cypionate 100 mg/mL oil 100 mg IM .q14 90 Days Qty: 10 1RF Rx Instructions: as a single dose levothyroxine 175 mcg tablet 175 mcg PO DAILY Qty: 90 1RF alprazolam 0.25 mg tablet 0.25 mg PO TID PRN (Reason: anxiety) Qty: 25 0RF epinephrine 0.3 mg/0.3 mL auto-injector 0.3 mg IM Q5-15M PRN (Reason: anaphylaxis) Qty: 2 0RF Rx Instructions: do not exceed 3 doses per episode (DME) syringe with needle 3 mL 22 gauge x 1 syringe See Rx Instructions .ROUTE .MEDSUPPLY Qty: 100 0RF Rx Instructions: use one needle to inject testosterrone epinephrine [EpiPen 2-Tariq] 0.3 mg/0.3 mL auto-injector 0.3 mg IM Q5-15M PRN (Reason: anaphylaxis) Qty: 1 2RF Patient Comments: allergic to bee stings, sulfa, shellfish Rx Instructions: do not exceed 3 doses per episode ergocalciferol (vitamin D2) 1,250 mcg (50,000 unit) capsule See Rx Instructions .ROUTE .COMPLEX Qty: 12 3RF Dose Instruction: TAKE 1 CAPSULE WEEKLY Rx Instructions: TAKE 1 CAPSULE WEEKLY bupropion HCl 300 mg tablet extended release 24 hr See Rx Instructions .ROUTE .COMPLEX Qty: 90 0RF Dose Instruction: TAKE 1 TABLET EVERY MORNING Rx Instructions: TAKE 1 TABLET EVERY MORNING Follow-up/Referrals: Denver Hogan MD [Primary Care Provider] - 3 Days Time of Disposition: 23:02
[2025-04-26 23:43] VITALS: BP 137/86; PULSE 79; RESP 19; TEMP 36.6; O2SAT 98
== END 2025-04-26 23:38 | disposition home or self-care (01) ==
PROVIDERS: Emergency Provider Emergency Medicine; PCP Family Medicine
DX: T63.461A Toxic effect of venom of wasps, accidental (unintentional), initial encounter (principal); Z91.038 Other insect allergy status
CPT/HCPCS: 96374; 96375; 99284; J1200; J2919

== ENCOUNTER 2025-06-05 08:21 | Outpatient (CLI) | payer OTHER, SELFPAY ==
--- NOTE | 2025-06-22 10:23 | P.SLEEP_ITS ---
Sleep Study Date of Study: 06/05/25 Ordering Provider: RYAN Duarte Interpreting Physician: Stephanie Worrell MD Sleep Study Type: Split Polysomnogram Height: 1.83 m Weight: 117.48 kg Body Mass Index: 35.1 Neck Circumference (inches): 18 [place]: 8 Reason for Sleep Study Obstructive sleep apnea, CPAP machine broke Sleep History Danny Cook is a 59-year-old man with obstructive sleep apnea, has been us ing an old CPAP machine which recently broke. He has been using a back up travel machine for a few days prior to this test. He had a wasp sting in April of this year, and since then, he has been more tired than usual. This might be a coincidence.He never awakens from sleep feeling short of breath. He never wakes at night with heartburn, belching or coughing.?Without CPAP, he snores loudly enough that others complain. He occasionally has trouble sleeping when he has a cold. He never wakes up gasping for breath during the night. He never has breathing problems at night. He rarely sweats excessively at night. He never notices his heart pounding or beating irregularly during the night. He occasionally falls asleep during the day. He never falls asleep involuntarily or while driving since he started using CPAP. He never experiences loss of muscle tone with strong emotion. He rarely has daytime difficulty at work due to excessive sleepiness. He never feels paralyzed on waking or falling asleep. He never experiences vivid dreams upon waking or falling asleep. He never feels afraid of going to sleep. He rarely has nightmares. He occasionally recalls his dreams. He occasionally has thoughts racing through his mind. He never feels sad or depressed. He rarely feels anxiety. He rarely notices parts of his body jerk. He never kicks during the night. He never feels crawling or aching feelings in his legs. He never feels leg pain at night. He never has morning jaw pain, rarely grinds his teeth at night. He rarely feels bothered by pain during the day, rarely is awakened by pain during the night. He rarely wakes up feeling stiff in the morning, and he rarely wakes feeling sore or achy. He awakens with pain in his neck, spine, or joints. he has fatigue, concentration difficulties which he thinks were all recently due to the wasp sting in April. Normal bedtime is 9-930 p.m., falling asleep within 30 minute, waking 2 times at night to go to the bathroom, returning to sleep within 5-10 minute. Wake time is 5:30 a.m.. He typically gets 7 and half hours of sleep per night. He takes no naps in the daytime. Habits:??Tobacco: quit smoking 30 years ago Caffeine: 2 cups of coffee daily Alcohol: very rare alcohol Recreational substances: none [facility] Past Medical History Medical History Peroneal tendonitis of left lower extremity Anemia (Unknown) Obstructive sleep apnea on CPAP (Unknown) Vitamin D deficiency Diverticulitis Hypertension (Unknown) Hypogonadotropic hypogonadism Hypothyroidism (Unknown) Surgical History Surgical History History of arthroscopy of right knee History of vasectomy History of tonsillectomy Family History Family History Mother Hypertension Bladder cancer Father Diabetes mellitus Acute myocardial infarction Family history of obesity Family history of hearing loss Family history of thyroid disease Social History Social History Social History: The patient lives with his and 2 sons in [place]. 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 Smoked 1 pack of cigarettes a day for 5 years and quit in 1994. No alcohol or illicit substance abuse. He designates his Stefanie as his surrogate decision maker. Code status: Full code. Years smoked: 3 Smoking status: Former smoker Tobacco type: cigarettes Alcohol intake: never Substance use: never Substance use type: does not use Lack of Transportation: No Lack of Food: Sometimes True Current Housing: I Have Housing Concerned About Future Housing: No Difficulty Paying Gas/Electric Bills: No Difficulty Paying for Meds: No Currently Unemployed: No Education: Bachelor's Degree Difficulty w/ Childcare or Family Care: No Living arrangements: with family Gender identity (if verbalized by the patient): Male Spiritual care concerns: No Medications Home Medications ?Medication ?Instructions ?Recorded ?Confirmed ?Type epinephrine 0.3 mg/0.3 mL 0.3 mg (0.3 mL) IM Q5-15M CT N 03/23/23 06/20/25 Rx injection, auto-injector anaphylaxis #2 ea alprazolam 0.25 mg tablet 0.25 mg PO TID PRN anxiety # 25 tabs 11/29/23 06/20/25 Rx syringe with needle 3 mL 22 gauge #100 ea 07/18/24 Rx x 1 epinephrine 0.3 mg/0.3 mL 0.3 mg (0.3 mL) IM Q5-15M CT N 09/23/24 06/20/25 Rx injection, auto-injector (EpiPen anaphylaxis #1 ea 2-Tariq) ergocalciferol (vitamin D2) 1,250 See Rx Instructions .Route 11/30/24 06/20/25 Rx mcg (50,000 unit) capsule .COMPLEX #12 caps levothyroxine 175 mcg tablet 175 mcg PO DAILY hypothyr oidism 03/15/25 06/20/25 Rx #90 tabs testosterone cypionate 100 mg/mL 100 mg IM .q14 90 day s #10 mL 03/15/25 06/20/25 Rx intramuscular oil tirzepatide (weight loss) 15 15 mg (0.5 mL) subcut WEE KLY 12 03/15/25 06/20/25 Rx mg/0.5 mL subcutaneous pen injector weeks #6 mL bupropion HCl 300 mg 24 hr tablet, See Rx Instructions .Route 05/03/25 06/20/25 Rx extended release .COMPLEX #90 tabs clobetasol 0.05 % scalp solution 1 applic topical oscar y 05/04/25 06/08/25 History econazole nitrate 1 % topical cream applic topical 06/08/25 History ketoconazole 2 % topical cream applic topical 05/04/25 06/08/25 History prednisone 50 mg tablet 50 mg PO ONCE #10 tabs 05/0406/20/25 Rx syringe with needle, safety 3 mL #100 ea 05/04/25 0812/12 History 22 gauge x 1 (UltiCare Safety Syringe) tacrolimus 0.1 % topical ointment topical 05/04/25 History Sleep Procedure A split night polysomnogram using the [employer] Sleepetaskr multi-channel system recorded the standard physiologic parameters including EEG, EOG, submentalis EMG, anterior tibialis EMG, EKG, body position, nasal and oral airflow using nasal pressure sensor and thermistor. Respiratory parameters of chest and abdominal movements were recorded with Respiratory Inductance Plethysmography belts. Oxygen saturation was recorded by pulse oximetry. Video monitoring was also performed. Sleep stages, periodic limb movements, and EEG arousals were scored in 30 second epochs according to the criteria of the AASM Scoring Manual. The Apnea-Hypopnea Index was calculated using [facility] guidelines for definition of hypopnea while scoring respiratory events. The patient self-administered Lunesta 2 mg at the beginning of the study. After the baseline portion the patient met criteria for a titration with an AHI of 60.8 and desaturation to 86%. Events were much worse in the supine position, supine apnea-hypopnea index was 105.8. He used a medium ResMed AirFit F30 I fullface mask and heated humidity, initial CPAP pressure was 5 cm, titrated to 6 cm, 8 cm, 9 cm, 11 cm, 13 cm, final pressure was 14 cm to eliminate snoring. At CPAP 14 cm, the patient spent 78.5 minutes in bed, 9 minutes awake, 59.5 minutes in non-REM and 10 minutes in REM. Sleep efficiency was 88.5%. The residual apnea-hypopnea index was 9.5 and the lowest saturation was 92%. He had supine REM at this pressure. Sleep Architecture During the diagnostic portion of the study, the total recording time was 216.1 minutes. The total sleep time was 108.5 minutes. Sleep latency was 9.1 minutes. There was no REM. Sleep Efficiency was 50.2%. The patient had 38 awakenings for an awakening index of 21.0. Wake after sleep onset time was 98.5 minutes. The patient spent 30.0 minutes, 27.6% of total sleep time in Stage N1. The patient spent 78.5 minutes, 72.4% in Stage N2. The patient spent no time in Stage N3 or Stage REM sleep. At 01:29:47 AM the patient was placed on PAP treatment. During the treatment portion of the study, the total recording time was 241.8 minutes. The total sleep time was 180.0 minutes. Sleep latency was 20.0 minutes. REM latency was 82.5 minutes. Sleep Efficiency was 74.4%. Wake after Sleep Onset time was 41.5 minutes. The patient spent 17.5 minutes, 9.7% of total sleep time in Stage N1. The patient spent 129.0 minutes, 71.7% in Stage N2. The patient spent no time in Stage N3. The patient spent 33.5 minutes, 18.6% in Stage REM. Respiratory Analysis During the diagnostic portion of the study, the patient had 15 hypopneas, 85 obstructive apneas, 1 mixed apnea, and 9 central apneas for an overall Apnea Hypopnea Index of 60.8 events per hour. There was no REM on the baseline. The NREM Apnea Hypopnea Index was 60.8. The patient had a Central Apnea Hypopnea Index of 5.0. There were no Respiratory Effort Related Arousals. The Respiratory Disturbance Index is 66.4 events per hour. There was no evidence of Carmelo- Serrano Respirations. During the treatment portion of the study, the patient had 19 hypopneas, 34 obstructive apneas, 1 mixed apnea, and 2 central apnea for an overall Apnea Hypopnea Index of 18.7 events per hour. The REM Apnea Hypopnea Index was 3.6. The NREM Apnea Hypopnea Index was 22.1. The patient had a Central Apnea Hypopnea Index of 0.7. There were no Respiratory Effort Related Arousals. The Respiratory Disturbance Index is 26.0 events per hour. There was no evidence of Carmeol- Serrano Respirations. Arousals During the diagnostic portion of the study, there were a total of 143 arousals for an arousal index of 79.1. There were 74 respiratory arousals for an index of 40.9. There were 19 periodic limb movement arousals for an index of 10.5. There were 16 isolated limb movement arousals for an index of 8.8. There were 35 spontaneous arousals for an index of 19.4. During the treatment portion of the study, there were a total of 85 arousals for an index of 28.3. There were 13 respiratory arousals for an index of 4.3. There were 9 periodic limb movement arousals for an index of 3.0. There were 5 isolated limb movement arousals for an index of 1.7. There were 54 spontaneous arousals for an index of 18.0. Periodic Limb Movements During the diagnostic portion of the study, the patient had 21 isolated limb movements with an index of 11.6. The patient had 148 periodic limb movements with an index of 81.8. The patient had a total of 169 limb movements with a total limb movement index of 93.5. During the treatment portion of the study, the patient had 19 isolated limb movements with an index of 6.3. The patient had 44 periodic limb movements with an index of 14.7. The patient had a total of 63 limb movements with a total limb movement index of 21.0. Oximetry Data During the diagnostic portion of the study, the patient had an average oxygen saturation of 90.7% in wake with a minimum oxygen saturation of 86% and a maximum oxygen saturation of 98%. The patient had an average oxygen saturation of 90.8% in sleep with a minimum oxygen saturation of 86% and a maximum oxygen saturation of 98%. The patient had 91 oxygen desaturations resulting in an Oxygen Desaturation Index of 50.3. The patient spent 33.1 minutes, 15.3% of total sleep time with an oxygen saturation less than 88%. During the treatment portion of the study, the patient had an average oxygen saturation of 93.7% in wake with a minimum oxygen saturation of 74% and a maximum oxygen saturation of 100%. The patient had an average oxygen saturation of 94.1% in sleep with a minimum oxygen saturation of 87% and a maximum oxygen saturation of 98%. The patient had 58 oxygen desaturations resulting in an Oxygen Desaturation Index of 19.3. The patient spent 0.4 minutes, 0.2% of total sleep time with an oxygen saturation less than 88%. Snoring Profile During the diagnostic portion, snoring was mild, and snoring was eliminated at CPAP 14 cm. Cardiac Profile During the diagnostic portion of the study, the EKG showed normal sinus rhythm. The average pulse rate was 79 bpm, minimum pulse rate was 65 bpm, and maximum pulse rate was 97 bpm. No arrhythmias noted. During the treatment portion of the study, the EKG showed normal sinus rhythm. The average pulse rate was 80.5 bpm, minimum pulse rate was 66 bpm, and the maximum pulse rate was 100 bpm. No arrhythmias noted. EEG Profile Unremarkable, no evidence of seizures. Assessment and Plan Assessment and Plan (1) Obstructive sleep apnea on CPAP: Onset Date: Unknown Code(s): G47.33 - Obstructive sleep apnea (adult) (pediatric); Z99.89 - Dependence on other enabling machines and devices Status: Chronic Assessment and Plan: This split night sleep study on 06/05/2025 shows extremely severe obstructive sleep apnea, the apnea-hypopnea index is 60.8 (p>= 4%) with desaturation 86%, 33.1 minute spent below 88% and absence of REM. The central apnea-hypopnea index was 5 events per hour which is borderline. Patient had a successful titration using a medium ResMed AirFit F30 I fullface mask with heated humidity with a pressure of CPAP 14.cm. At CPAP 14 cm, the patient spent 78.5 minutes in bed, 9 minutes awake, 59.5 minutes in non-REM and 10 minutes in REM. Sleep efficiency was 88.5%. The residual apnea-hypopnea index was 9.5 and the lowest saturation was 92%. He had supine REM at this pressure. Another acceptable pressure was CPAP 13 cm. I recommend CPAP 14 cm as he has been using a back up machine for the last 3 nights, and he may have partially treated NICA from using PAP up until the night of the study. The patient should be prescribed this ResMed equipment as well as tubing, filters and reservoir. This should be used with all episodes of sleep. Compliance should be reviewed within 31-90 days of starting therapy for usage greater than 4 hours per night greater than 70% of the nights. The patient should be asked about symptoms such as excessive daytime sleepiness, quality of sleep, decreased nocturia, increased mental functioning such as memory, mood, and concentration. BMI is 35. Weight management is advised. Clinical data suggests that weight loss of 10% can reduce the severity of respiratory events and snoring and improve AHI by as much as 25%. He had numerous periodic leg movements which improved on CPAP He did not have excessive arousals due to leg movements and has no complaints of kicking at night or uncomfortable feelings in his legs. Data The data obtained during this sleep study is adequate for interpretation. Certification This sleep study has been reviewed by a board certified sleep medicine physician.
[2025-06-22 14:20] VITALS: BMI 35.1
== END 2025-06-06 05:59 | disposition home or self-care (01) ==
LOC: ANHCSM 08:22
PROVIDERS: PCP Family Medicine; Visit Provider Physician Assistant
DX: G47.33 Obstructive sleep apnea (adult) (pediatric) (principal); Z99.89 Dependence on other enabling machines and devices
CPT/HCPCS: 95811

== ENCOUNTER 2025-07-05 00:36 | Day surgery (SDC) | payer OTHER, SELFPAY ==
[2025-06-20 10:38] VITALS: BMI 35.2
[2025-07-05 06:25] VITALS: BP 139/85; PULSE 88; RESP 18; TEMP 36.4; O2SAT 98; BMI 35.6
[2025-07-05] MEDS: LACTATED RINGERS 1,000 ML 150 ML IV CONT (06:39)
--- NOTE | 2025-07-05 06:56 | WPDANESEPPF ---
Anes - Initial Pre Proc Eval Procedure: Operation Date: 07/05/25 07:30 Proposed Procedures p Screening Colonoscopy - Osmel Fernández MD Date/Time: 07/05/25 06:56 Surgeon: Osmel Fernández MD Pre Op Diagnosis: Personal history of colon polyps, unspecified Patient Data Age: 59 Gender: M Height: 1.83 m Weight: 119.1 kg Last Vital Signs Temp 36.4 C L 07/05/25 06:25 Pulse 88 07/05/25 06:25 Resp 18 07/05/25 06:25 BP 139/85 07/05/25 06:25 Pulse Ox 98 07/05/25 06:25 O2 Del Method Room Air 07/05/25 06:25 Allergies Allergy/AdvReac Type Severity Reaction Status Date / Time Sulfa (Sulfonamide Allergy Intermediate Anaphylactic Verified 07/05/25 06:22 Antibiotics) Shock shellfish derived Allergy Mild Anaphylactic Verified 07/05/25 06:22 Shock bee venom protein (honey bee) Allergy Unknown unknown Verified 07/05/25 06:22 Penicillins Allergy Unknown MOTHER IS Verified 07/05/25 06:22 ALLERGIC sulfamethizole Allergy Unknown Asthma Verified 07/05/25 06:22 wasp Allergy Severe Anaphalaxis Uncoded 06/20/25 10:20 Home Medications ?Medication ?Instructions ?Recorded ?Confirmed ?Type epinephrine 0.3 mg/0.3 mL 0.3 mg (0.3 mL) IM Q5-15M PRN 03/23/23 06/20/25 Rx injection, auto-injector anaphylaxis #2 ea alprazolam 0.25 mg tablet 0.25 mg PO TID PRN anxiety #25 tabs 11/29/23 06/20/25 Rx syringe with needle 3 mL 22 gauge #100 ea 07/18/24 06/08/25 Rx x 1 epinephrine 0.3 mg/0.3 mL 0.3 mg (0.3 mL) IM Q5-15M PRN 09/23/24 06/20/25 Rx injection, auto-injector (EpiPen anaphylaxis #1 ea 2-Tariq) ergocalciferol (vitamin D2) 1,250 See Rx Instructions .Route 11/30/24 07/05/25 Rx mcg (50,000 unit) capsule .COMPLEX #12 caps levothyroxine 175 mcg tablet 175 mcg PO DAILY hypothyroidism 03/15/25 07/05/25 Rx #90 tabs testosterone cypionate 100 mg/mL 100 mg IM .q14 90 days #10 mL 03/15/25 06/20/25 Rx intramuscular oil tirzepatide (weight loss) 15 15 mg (0.5 mL) subcut WEEKLY 12 03/15/25 07/05/25 Rx mg/0.5 mL subcutaneous pen injector weeks #6 mL bupropion HCl 300 mg 24 hr tablet, See Rx Instructions .Route 05/03/25 07/05/25 Rx extended release .COMPLEX #90 tabs clobetasol 0.05 % scalp solution 1 applic topical daily 05/04/25 06/08/25 History econazole nitrate 1 % topical cream applic topical 05/04/25 06/08/25 History ketoconazole 2 % topical cream applic topical 05/04/25 06/08/25 History prednisone 50 mg tablet 50 mg PO ONCE #10 tabs 05/04/25 07/05/25 Rx syringe with needle, safety 3 mL #100 ea 05/04/25 06/08/25 History 22 gauge x 1 (UltiCare Safety Syringe) tacrolimus 0.1 % topical ointment topical 05/04/25 06/08/25 History Patient hx anesthesia problems: none Family hx anesthesia problems: none Results Review: All pre-operative results and documents have been reviewed as part of the pre-operative evaluation. [facility] Past Medical History Medical History Peroneal tendonitis of left lower extremity Anemia (Unknown) Obstructive sleep apnea on CPAP (Unknown) Vitamin D deficiency Diverticulitis Hypertension (Unknown) Hypogonadotropic hypogonadism Hypothyroidism (Unknown) Surgical History Surgical History History of arthroscopy of right knee History of vasectomy History of tonsillectomy Family History Family History Mother Hypertension Bladder cancer Father Diabetes mellitus Acute myocardial infarction Family history of obesity Family history of hearing loss Family history of thyroid disease Social History Social History Social History: The patient lives with his and 2 sons in [place]. 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 Smoked 1 pack of cigarettes a day for 5 years and quit in 1994. No alcohol or illicit substance abuse. He designates his Stefanie as his surrogate decision maker. Code status: Full code. Smoking status: Former smoker (quit 20 years ago) Alcohol intake: never Substance use: never Substance use type: does not use Lack of Transportation: No Lack of Food: Sometimes True Current Housing: I Have Housing Concerned About Future Housing: No Difficulty Paying Gas/Electric Bills: No Difficulty Paying for Meds: No Currently Unemployed: No Education: Bachelor's Degree Difficulty w/ Childcare or Family Care: No Living arrangements: with family Gender identity (if verbalized by the patient): Male Spiritual care concerns: No Anes - Eval Final PreProcedure Day of Procedure 07/05/25 06:56 Patient weight: obese Heart: regular rate and rhythm Lungs: clear to auscultation Airway: Mallampati scale class III and special considerations large neck Neurological: alert and oriented Last oral intake: >/= 8 hours Emergent: no Anesthetic plan: proceed Anesthesia type and monitoring: general GIVS and standard monitoring Results Review: All pre-operative results and documents have been reviewed as part of the pre-operative evaluation. Informed Consent: The patient's anesthetic plan and its attendant risks and benefits were discussed with the patient/family/POA. Questions were solicited and answers provided to the satisfaction of the patient/family/POA.
--- NOTE | 2025-07-05 07:33 | PM.IMHP ---
H&P: HPI History of Present Illness Date/Time: 07/05/25 07:33 Chief Complaint: History of colon polyps Narrative: The patient has a history of colonic polyps, the last colonoscopy was 5 years ago. Review of Systems Review of Systems: All systems reviewed & are unremarkable except as noted in HPI and below PMFSH Past Medical History Medical History Peroneal tendonitis of left lower extremity Anemia (Unknown) Obstructive sleep apnea on CPAP (Unknown) Vitamin D deficiency Diverticulitis Hypertension (Unknown) Hypogonadotropic hypogonadism Hypothyroidism (Unknown) Surgical History Surgical History History of arthroscopy of right knee History of vasectomy History of tonsillectomy Family History Family History Mother Hypertension Bladder cancer Father Diabetes mellitus Acute myocardial infarction Family history of obesity Family history of hearing loss Family history of thyroid disease Social History Social History Social History: The patient lives with his and 2 sons in [place]. 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 Smoked 1 pack of cigarettes a day for 5 years and quit in 1994. No alcohol or illicit substance abuse. He designates his Stefanie as his surrogate decision maker. Code status: Full code. Smoking status: Former smoker (quit 20 years ago) Alcohol intake: never Substance use: never Substance use type: does not use Lack of Transportation: No Lack of Food: Sometimes True Current Housing: I Have Housing Concerned About Future Housing: No Difficulty Paying Gas/Electric Bills: No Difficulty Paying for Meds: No Currently Unemployed: No Education: Bachelor's Degree Difficulty w/ Childcare or Family Care: No Living arrangements: with family Gender identity (if verbalized by the patient): Male Spiritual care concerns: No Meds Home Medications and Allergies Home Medications ?Medication ?Instructions ?Recorded ?Confirmed ?Type epinephrine 0.3 mg/0.3 mL 0.3 mg (0.3 mL) IM Q5-15M PRN 03/23/23 06/20/25 Rx injection, auto-injector anaphylaxis #2 ea alprazolam 0.25 mg tablet 0.25 mg PO TID PRN anxiety #25 tabs 11/29/23 06/20/25 Rx syringe with needle 3 mL 22 gauge #100 ea 07/18/24 06/08/25 Rx x 1 epinephrine 0.3 mg/0.3 mL 0.3 mg (0.3 mL) IM Q5-15M PRN 09/23/24 06/20/25 Rx injection, auto-injector (EpiPen anaphylaxis #1 ea 2-Tariq) ergocalciferol (vitamin D2) 1,250 See Rx Instructions .Route 11/30/24 07/05/25 Rx mcg (50,000 unit) capsule .COMPLEX #12 caps levothyroxine 175 mcg tablet 175 mcg PO DAILY hypothyroidism 03/15/25 07/05/25 Rx #90 tabs testosterone cypionate 100 mg/mL 100 mg IM .q14 90 days #10 mL 03/15/25 06/20/25 Rx intramuscular oil tirzepatide (weight loss) 15 15 mg (0.5 mL) subcut WEEKLY 12 03/15/25 07/05/25 Rx mg/0.5 mL subcutaneous pen injector weeks #6 mL bupropion HCl 300 mg 24 hr tablet, See Rx Instructions .Route 05/03/25 07/05/25 Rx extended release .COMPLEX #90 tabs clobetasol 0.05 % scalp solution 1 applic topical daily 05/04/25 06/08/25 History econazole nitrate 1 % topical cream applic topical 05/04/25 06/08/25 History ketoconazole 2 % topical cream applic topical 05/04/25 06/08/25 History prednisone 50 mg tablet 50 mg PO ONCE #10 tabs 05/04/25 07/05/25 Rx syringe with needle, safety 3 mL #100 ea 05/04/25 06/08/25 History 22 gauge x 1 (UltiCare Safety Syringe) tacrolimus 0.1 % topical ointment topical 05/04/25 06/08/25 History Allergies Allergy/AdvReac Type Severity Reaction Status Date / Time Sulfa (Sulfonamide Allergy Intermediate Anaphylactic Verified 07/05/25 06:22 Antibiotics) Shock shellfish derived Allergy Mild Anaphylactic Verified 07/05/25 06:22 Shock bee venom protein (honey bee) Allergy Unknown unknown Verified 07/05/25 06:22 Penicillins Allergy Unknown MOTHER IS Verified 07/05/25 06:22 ALLERGIC sulfamethizole Allergy Unknown Asthma Verified 07/05/25 06:22 wasp Allergy Severe Anaphalaxis Uncoded 06/20/25 10:20 Vital Signs Vital Signs - 24 hr 07/05/25 06:25 Temperature 97.5 F L Pulse Rate 88 Respiratory Rate 18 Blood Pressure 139/85 Pulse Oximetry 98 Oxygen Delivery Room Air Exam Const: General: cooperative and healthy appearing Resp: Effort & Inspection: normal respiratory effort and able to speak in complete sentences Auscultation: clear to auscultation bilaterally Cardio: Rate: regular rate Rhythm: regular rhythm GI: Inspection: normal to inspection GI Palp: No No hepatosplenomegaly present Auscultation: normal bowel sounds Rectal Exam: deferred Skin: General skin exam: normal color Psych: Appearance: grossly normal Mental Status: mental status grossly normal Assessment and Plan Assessment and plan (1) Colon cancer screening: Code(s): Z12.11 - Encounter for screening for malignant neoplasm of colon Status: Acute Assessment and Plan: The patient is deemed a good candidate for the procedure. Consent signed. Will proceed.
[2025-07-05] MEDS: SIMETHICONE ORAL SUSPENSION 20 MG/0.3 ML 30 ML BOTTLE 0.6 ML IRRIGATION (07:42)
--- NOTE | 2025-07-05 07:52 | S_PTH ---
PATIENT: Danny Cook Jr. LOC: [facility] U#:[id number] AGE/SX: 59/M ROOM: RE07/05/[address]: Osmel Fernánedz MD : [id number] BED: DIS: 07/05/2025 SPEC #: [id number] RECD: 07/05/25 09:53 STATUS: CATY REQ #: [id number] ELISABETH: 07/05/25 07:[address]: Osmel Fernández DEPT: [facility] Surgical RECD BY: Sofiya Jackson ENTERED: 07/05/25 09:53 SP TYPE: Surgical OTHR DR: Denver Hogan MD Tissues: A - Colon Polypectomy Procedures: Hematoxylin and Eosin Stain Gross and Microscopic Level 4
[2025-07-05 07:55] VITALS: BP 102/60; PULSE 86; RESP 20; O2SAT 100
[2025-07-05 08:05] VITALS: BP 116/71; PULSE 76; RESP 18; O2SAT 100
[2025-07-05 08:15] VITALS: BP 119/76; PULSE 80; RESP 18; O2SAT 100
== END 2025-07-05 08:21 | disposition home or self-care (01) ==
PROVIDERS: PCP Family Medicine; Referring Provider Family Medicine; Visit Provider Internal Medicine Gastroenterology
PROC: 0DJD8ZZ Inspection of Lower Intestinal Tract, Via Natural or Artificial Opening Endoscopic (ICD-10-PCS; CPT 45378; principal; 2025-07-05 07:30)
DX: Z12.11 Encounter for screening for malignant neoplasm of colon (principal); D12.5 Benign neoplasm of sigmoid colon; K57.30 Diverticulosis of large intestine without perforation or abscess without bleeding; D64.9 Anemia, unspecified; E55.9 Vitamin D deficiency, unspecified; I10 Essential (primary) hypertension; E23.0 Hypopituitarism; E03.9 Hypothyroidism, unspecified; G47.33 Obstructive sleep apnea (adult) (pediatric); E66.9 Obesity, unspecified; Z68.35 Body mass index [BMI] 35.0-35.9, adult; Z79.85 Long-term (current) use of injectable non-insulin antidiabetic drugs; Z79.52 Long term (current) use of systemic steroids; Z99.89 Dependence on other enabling machines and devices; Z98.890 Other specified postprocedural states; Z87.891 Personal history of nicotine dependence; Z87.19 Personal history of other diseases of the digestive system; Z80.52 Family history of malignant neoplasm of bladder; Z82.49 Family history of ischemic heart disease and other diseases of the circulatory system
CPT/HCPCS: 45385; 88305; J2003; J2704; J7120